=== PATIENT | female | born 1945 | race Caucasian/White ===

== ENCOUNTER 2024-01-12 13:32 | Emergency (ER) | payer MEDICARE, SELFPAY ==
--- NOTE | ~2024-01-12 | XR_ITS ---
EXAMINATION: XR knee LT 3V DATE: 01/12/2024 14:38 INDICATION: Left knee pain and swelling. Fall. TECHNIQUE: 3 views of left knee were obtained. COMPARISON: None. FINDINGS: There is a nondisplaced stellate fracture of patella. There is mild osteoarthritis of media l and lateral compartments. There is a large hemarthrosis. IMPRESSION: 1. Nondisplaced stellate fracture of patella. Reviewed, dictated and finalized at location E.
--- NOTE | ~2024-01-12 | XR_ITS ---
EXAMINATION: XR wrist LT min 3V DATE: 01/12/2024 14:38 INDICATION: Left wrist pain. Fall. TECHNIQUE: 4 views of left wrist were obtained. COMPARISON: None. FINDINGS: Bone alignment is normal. No fracture. There is mild osteoarthritis of triscaphe joint and first carpometacarpal joint. IMPRESSION: 1. Mild polyarticular osteoarthritis. Reviewed, dictated and finalized at location E.
[2024-01-12 13:54] VITALS: BP 115/89; PULSE 70; RESP 18; TEMP 36.6; O2SAT 99
--- NOTE | 2024-01-12 15:40 | ED.FALL ---
HPI - Fall General Chief Complaint: Fall Stated Complaint: Fall History of Present Illness HPI Narrative: 78 Year old female presents to the emergency department for left knee pain and left wrist pain after mechanical fall that occurred prior to arrival. Patient states she was walking on tile floor when her flip-flop got caught on the floor and caused her to fall. She landed on her left knee and left wrist bracing herself. She did not hit her head or lose consciousness. She is reporting pain to her left thenar eminence and left knee. She denies neck injury, back pain or other injuries acquired. She is traveling here from [place] and is returning home in 2 days. She took an Aleve prior to arrival with improvement. Related Data Allergies Allergy/AdvReac Type Severity Reaction Status Date / Time No Known Allergies Allergy Verified 01/12/24 15:49 Review of Systems Review of Systems: CONSTITUTIONAL: Denies fever, chills, or sweats. EYES: Denies visual changes, redness, or discharge. ENT: Denies rhinorrhea, congestion, sore throat, or otalgia. CARDIOVASCULAR: Denies chest pain, palpitations, or edema. RESPIRATORY: Denies cough or dyspnea. GASTROINTESTINAL: Denies abdominal pain, nausea, vomiting, or diarrhea. GENITOURINARY: Denies dysuria or hematuria. SKIN: Denies rash or itching. MUSCULOSKELETAL: see HPI NEUROLOGIC: Denies headache, numbness, or weakness. PSYCHIATRIC: Denies anxiety or depression. Exam Narrative: GENERAL: Well-appearing, well-nourished, and in no acute distress. HEAD: Normocephalic, atraumatic. EYES: PERRLA and EOMI. ENT: Nares clear, no rhinorrhea or epistaxis. Mucous membranes moist. NECK: No midline cervical spinous tenderness, step-offs or deformities BACK: No thoracolumbar spinous tenderness, step-offs or deformities CHEST: Clear to auscultation. No respiratory distress. HEART: Regular rate and rhythm. No murmur heard. Normal peripheral pulses. EXTREMITIES: LUE: mild ecchymosis and tenderness to the left thenar eminence. Full range of motion of all fingers and wrist. No snuffbox tenderness. Radial pulse 2 +. Cap refill less than 2. Sensation intact. LLE: Tenderness to the patella, medial and lateral joint lines. Diffuse edema to knee. Active range of motion, however worsening pain with extension and flexion of knee. No tenderness to hip remainder of lower extremity. DP pulse 2 +. Sensation intact. SKIN: Warm, dry, no rash. NEURO: No focal deficits. Alert and oriented x3 Course Vital Signs Vital signs: Vital Signs Temperature 98 F 01/12/24 13:54 Pulse Rate 70 01/12/24 13:54 Respiratory Rate 18 01/12/24 13:54 Blood Pressure 115/89 01/12/24 13:54 Pulse Oximetry 99 01/12/24 13:54 Oxygen Delivery Room Air 01/12/24 13:54 Temperature 98 F 01/12/24 13:54 Pulse Rate 70 01/12/24 13:54 Respiratory Rate 18 01/12/24 13:54 Blood Pressure 115/89 01/12/24 13:54 Pulse Oximetry 99 01/12/24 13:54 Oxygen Delivery Room Air 01/12/24 13:54 MDM - Fall MDM Narrative Medical decision making narrative: 78-year-old female presents to the emergency department for left knee pain and ecchymosis to her left thenar eminence after mechanical fall fall that occurred prior to arrival. She did not hit her head or lose consciousness. Triage vitals are stable. Exam significant for the above. She is neurovascularly intact. X-rays of the wrist are unremarkable. X-rays of the knee show a nondisplaced stellate fracture of the patella. Imaging discussed with the patient. She was placed in a knee immobilizer and provided crutches. [place] sent to pharmacy. Advised her to follow-up with her PCP when she gets home for orthopedic referral. Patient sent home with a disc of images. Strict ED return precautions provided. She is agreeable with the plan verbalized understanding. Discharged in stable condition. Discharge Plan Discharge Clinical Impression: Fract
== END 2024-01-12 16:40 | disposition home or self-care (01) ==
LOC: ANHED 16:08
PROVIDERS: Emergency Provider Physician Assistant
DX: S82.002A Unspecified fracture of left patella, initial encounter for closed fracture (principal); W18.30XA Fall on same level, unspecified, initial encounter
CPT/HCPCS: 73110; 73562; 99284